=== PATIENT | male | born 1965 | race Caucasian/White ===

== ENCOUNTER 2020-01-26 21:05 | Emergency (ER) | payer BC ==
--- NOTE | 2020-01-26 21:40 | EDM.PDOC ---
ED HPI GENERAL MEDICAL PROBLEM - General Chief Complaint: Eye Problems Stated Complaint: SOMETHING IN LEFT EYE Time Seen by Provider: 01/26/20 21:20 Source of Information: Reports: Patient History Limitations: Reports: No Limitations - History of Present Illness INITIAL COMMENTS - FREE TEXT/NARRATIVE: 54-year-old male with a foreign body sensation in his left eye. It occurred while he was working with wood earlier this afternoon. He thought it was improving but tonight it was really bothering him so he came in. No visual disturbance. Onset: Sudden Duration: Hour(s): (7 hours ago) Location: Reports: Other (Left eye) Worsens with: Reports: Other (Blinking or moving his eye is uncomfortable) Associated Symptoms: Reports: No Other Symptoms Left Eye Pain Score (Numeric/FACES): 5 - Related Data Allergies Allergy/AdvReac Type Severity Reaction Status Date / Time Penicillins Allergy Rash Verified 01/26/20 21:23 Home Meds: Home Meds Lovastatin 20 mg PO DAILY 01/26/20 [History] Past Medical History Cardiovascular History: Reports: High Cholesterol - Infectious Disease History Infectious Disease History: Reports: Chicken Pox Social & Family History - Tobacco Use Smoking Status *Q: Never Smoker Second Hand Smoke Exposure: No - Caffeine Use Caffeine Use: Reports: Coffee, Soda - Recreational Drug Use Recreational Drug Use: No ED ROS GENERAL - Review of Systems Review Of Systems: See Below Constitutional: Denies: Fever, Chills HEENT: Reports: Eye Pain (Left eye only) Respiratory: Denies: Shortness of Breath GI/Abdominal: Denies: Nausea, Vomiting Skin: Reports: No Symptoms Neurological: Denies: Headache ED EXAM GENERAL W FULL EYE - Physical Exam Exam: See Below Exam Limited By: No Limitations General Appearance: Alert, No Apparent Distress Eye Exam: Bilateral Eye: EOMI, PERRL Eyelids: Bilateral: Normal Appearance Conjunctiva & Sclera: Left: Other (Mild conjunctival erythema on the left) Cornea Exam: Left: Corneal Abrasion, Foreign Body (After proparacaine anesthesia , slit-lamp exam revealed a small partially opaque foreign body on the cornea at roughly 4:00 over the color of the eye off of the pupil. A sterile soaked Q- tip was used to remove the foreign body, a small corneal abrasion remained) Head: Atraumatic Respiratory/Chest: No Respiratory Distress Course - Vital Signs Last Recorded V/S: Last Vital Signs Temp 97.5 F 01/26/20 21:26 Pulse 92 01/26/20 21:26 Resp 16 01/26/20 21:26 BP 140/89 01/26/20 21:26 Pulse Ox 97 01/26/20 21:26 - Re-Assessments/Exams Free Text/Narrative Re-Assessment/Exam: 01/26/20 21:38 1 drop of proparacaine was placed in the left eye, and then the eye was examined with the slit lamp. A small partially opaque foreign body was embedded in the cornea at 4:00, this was removed with a soaked sterile Q-tip. Reexamination showed a small corneal abrasion but no foreign body. Eyelids were inverted, no further foreign body or abnormality was found. Patient should improve rapidly. Departure - Departure Time of Disposition: 21:49 Disposition: Home, Self-Care 01 Clinical Impression: Corneal FB (foreign body) Qualifiers: Encounter type: initial encounter Laterality: left Qualified Code(s): T15.02XA - Foreign body in cornea, left eye, initial encounter - Discharge Information Instructions: Eye Foreign Body, [id number] Referrals: PCP,None [Primary Care Provider] - Forms: ED Department Discharge Care Plan Goals: Artificial tears to keep eye moist, and a dose of ibuprofen may be beneficial tonight. Your eye should improve rapidly, recheck in 24 to 48 hours if not significant improvement. Sepsis Event Note - Evaluation Sepsis Screening Result: No Definite Risk - Focused Exam Vital Signs: Vital Signs Temp Pulse Resp BP Pulse Ox 01/26/20 21:26 97.5 F 92 16 140/89 97 01/26/20 21:17 97.5 F 92 16 140/89 97 Date Exam was Performed: 01/26/20 Time Exam was Performed: 22:24
== END 2020-01-26 21:50 | disposition home or self-care (01) ==
LOC: JP.ED 21:05
CPT/HCPCS: 65222; 99283